=== PATIENT | female | born 1995 | race African-American/Black ===

== ENCOUNTER 2018-01-01 12:36 | Emergency (ER) | payer MEDICAID ==
[~2018-01-01] VITALS: Ht 152.4 cm; Wt 57.9 kg
[2018-01-01 12:38] VITALS: BP 118/77
[2018-01-01] MEDS ORDERED: LIDOCAINE-MPF 1%, 5ML INFIL ONE (13:30)
[2018-01-01] MEDS ORDERED: LIDOCAINE-MPF 1%, 5ML ONE (13:31)
== END 2018-01-01 13:39 | disposition home or self-care (01) ==
LOC: ED 13:33
DX: L02.411 Cutaneous abscess of right axilla (principal)
CPT/HCPCS: 99283

== ENCOUNTER 2018-02-21 14:11 | Emergency (ER) | payer MEDICAID ==
[~2018-02-21] VITALS: Ht 152.4 cm; Wt 57.1 kg
[2018-02-21 14:13] VITALS: BP 100/67
[2018-02-21] MEDS ORDERED: DEXAMETHASONE 4 MG TABLET PO ONE (16:00)
[2018-02-21] MEDS ORDERED: IBUPROFEN 200 MG TABLET PO ONE (16:00)
[2018-02-21] MEDS ORDERED: BICILLIN-LA 1,200,000 UNITS/2 ML IM ONE (16:00)
[2018-02-21] MEDS ORDERED: DEXAMETHASONE 4 MG TABLET ONE (16:07)
[2018-02-21] MEDS ORDERED: IBUPROFEN 200 MG TABLET ONE (16:07)
== END 2018-02-21 17:10 | disposition home or self-care (01) ==
LOC: ED 16:59
DX: J02.0 Streptococcal pharyngitis (principal)
CPT/HCPCS: 87880; 96372; 99283; J0561